=== PATIENT | female | born 1945 | race Caucasian/White ===

== ENCOUNTER 2019-09-29 10:41 | Inpatient (IN) | payer MEDICARE, OTHER ==
[~2019-09-29] VITALS: Ht 152.4 cm; Wt 57.2 kg
[~2019-09-29 10:41] MED LIST: ALLEGRA D PO; Acetaminophen PO; BELLADONNA PO; CHOL200074 PO; CICL12.5 EA NOSTRIL; DIAZ2TAB PO; ESOM40CA PO; EZET10TA15 PO; HYDR-4354 PO; MELO-107 PO; MONT10TA22 PO; MUPIROCIN 2%; NEBI5TAB8 PO; OLME1TAB22 PO; OLOP30.5 EA NOSTRIL; PHENERGAN PO; RANI-655 PO; TOPOMAX PO
--- NOTE | 2019-09-29 10:57 | NUR ---
Pt states her B/P has been running high >160/90's. Pt c/o dizziness, MONSALVE, SOB (denies cough), and n/v. Also c/o leg heaviness. Pt denies CP, minor distress noted.
[2019-09-29] MEDS ORDERED: ACETAMINOPHEN ES 500 MG TABLET PO ONE (11:15)
[2019-09-29] MEDS ORDERED: METOCLOPRAMIDE HCL 10 MG/2 ML VIAL IV ONE (11:15)
[2019-09-29] MEDS ORDERED: IV NORMAL SALINE 1000 ML BAG IV ONE (11:15)
[2019-09-29] MEDS ORDERED: diphenhydrAMINE 50 MG/1 ML VIAL IV ONE (11:15)
[2019-09-29] MEDS ORDERED: MECLIZINE HCL 25 MG TABLET PO ONE (11:15)
[2019-09-29] MEDS ORDERED: RIZA10TA27 PO (11:27)
[2019-09-29] MEDS ORDERED: FURO20TA4 PO (11:27)
[2019-09-29] MEDS ORDERED: AMLO2.5T4 PO (11:27)
[2019-09-29] MEDS ORDERED: SERT100T PO (11:27)
[2019-09-29] MEDS ORDERED: DONE10TA44 PO (11:27)
[2019-09-29] MEDS ORDERED: ROPI1TAB6 PO (11:27)
[2019-09-29] MEDS ORDERED: MV-M1TAB18 PO (11:27)
[2019-09-29] MEDS ORDERED: OLME1TAB19 PO (11:27)
[2019-09-29] MEDS ORDERED: BACL10TA PO (11:27)
[2019-09-29] MEDS ORDERED: KCL PO (11:27)
[2019-09-29] MEDS ORDERED: MEMA10TA PO (11:27)
[2019-09-29] MEDS ORDERED: FAMO40TA7 PO (11:27)
[2019-09-29] MEDS ORDERED: ATOR20TA PO (11:27)
[2019-09-29] MEDS ORDERED: SUCR1TAB PO (11:27)
[2019-09-29] MEDS ORDERED: OMEG-166 PO (11:27)
[2019-09-29 11:41] LABS: BASOPHILS # (AUTO) 0.1 K/uL (0.0-8.0); BASOPHILS % (AUTO) 0.7 % (0.0-2.0); EOSINOPHILS % (AUTO) 0.1 % (0.0-7.0); HEMATOCRIT 37.2 % (31.2-41.9); HEMOGLOBIN 12.4 g/dL (10.9-14.3); LYMPHOCYTES # (AUTO) 0.9 K/uL (20.0-40.0); LYMPHOCYTES % (AUTO) 12.8 % (20.5-51.5); MEAN CORPUSCULAR HEMOGLOBIN 27.5 uug (24.7-32.8); MEAN CORPUSCULAR HGB CONC 33 g/dL (32.3-35.6); MEAN CORPUSCULAR VOLUME 82.4 fL (75.5-95.3); MONOCYTES # (AUTO) 0.3 K/uL (2.0-10.0); MONOCYTES % (AUTO) 4.6 % (0.0-11.0); NEUTROPHILS # (AUTO) 5.9 K/uL (1.8-8.9); NEUTROPHILS % (AUTO) 81.8 % (38.5-71.5); PLATELET COUNT (AUTO) 342 K/uL (179-408); RED BLOOD CELL COUNT(AUTO) 4.51 MIL/uL (3.63-4.92); WHITE BLOOD COUNT (AUTO) 7.3 K/uL (3.8-11.8)
[2019-09-29] MEDS ORDERED: ACETAMINOPHEN ES 500 MG TABLET ONE (11:41)
[2019-09-29] MEDS ORDERED: MECLIZINE HCL 25 MG TABLET ONE (11:41)
[2019-09-29] MEDS ORDERED: METOCLOPRAMIDE HCL 10 MG/2 ML VIAL ONE (11:42)
[2019-09-29] MEDS ORDERED: diphenhydrAMINE 50 MG/1 ML VIAL ONE (11:42)
[2019-09-29 11:54] LABS: CREATININE 1.1 mg/dL (0.6-1.3); POTASSIUM 3.2 mmol/L (3.5-5.1)
[2019-09-29] MEDS ORDERED: MAGN400C PO (12:06)
[2019-09-29] MEDS ORDERED: IBAN150T16 PO (12:06)
[2019-09-29 12:08] LABS: BILIRUBIN,DIRECT 0.1 mg/dL (0.0-0.2); BILIRUBIN,TOTAL 0.5 mg/dL (0.2-1.0); MAGNESIUM 1.8 mg/dL (1.8-2.4); PHOSPHOROUS 4.1 mg/dL (2.5-4.9); TOTAL PROTEIN, SERUM 7.6 g/dL (6.4-8.2)
[2019-09-29] MEDS ORDERED: IOHEXOL 350 100 ML INFUS..BTL ONE (12:10)
[2019-09-29] MEDS ORDERED: SWABABLE VALVE TRANSFER SET EA MC ONE (12:10)
[2019-09-29] MEDS ORDERED: IV NORMAL SALINE 250 ML IV ONE (12:10)
[2019-09-29 12:18] LABS: THYROID STIMULATING HORMONE 0.66 mIU/mL (0.358-3.740)
--- NOTE | 2019-09-29 12:18 | NUR ---
Pt signed consent for CT contrast. Taken to CT.
[2019-09-29] MEDS ORDERED: IV NS 1000 ML 1,000 ML IV ONE (12:30)
[2019-09-29] MEDS ORDERED: POTASSIUM CHLORIDE 20 MEQ TAB.PRT.SR PO ONE (12:30)
--- NOTE | 2019-09-29 12:39 | NUR ---
Pt back from CT. Pt gave urine sample, delivered to lab
[2019-09-29 12:59] LABS: *BILIRUBIN,URIN NEGATIVE (NEGATIVE); *CLARITY,URINE CLEAR (CLEAR); *COLOR,URINE YELLOW (YELLOW); *KETONES,URINE NEGATIVE (NEGATIVE); *UROBILINOGEN,URINE 0.2 E.U./dl (NORMAL); LEUKOCYTE ESTERASE ,URINE NEGATIVE (NEGATIVE); NITRITE, URINE NEGATIVE (NEGATIVE); UGLUCOSE NEGATIVE (NEGATIVE)
[2019-09-29 13:07] LABS: *BLOOD, URINE TRACE (NEGATIVE)
[2019-09-29] MEDS ORDERED: ONDANSETRON 4 MG/2 ML VIAL IV PRN (13:45)
[2019-09-29] MEDS ORDERED: hydrALAZINE HCL 25 MG TABLET PO PRN (13:45)
[2019-09-29] MEDS ORDERED: MORPHINE SULFATE 2 MG/1 ML DISP.SYRIN IV PRN (13:45)
[2019-09-29] MEDS ORDERED: POTASSIUM CHLORIDE 20 MEQ TAB.PRT.SR ONE ×2 (13:56→14:00)
[2019-09-29] MEDS ORDERED: ASPIRIN 325 MG TABLET ONE (13:59)
[2019-09-29] MEDS ORDERED: ASPIRIN 325 MG TABLET PO ONE (14:00)
--- NOTE | 2019-09-29 16:41 | NUR ---
Called report to SHERIE Joel. Room changed from 327 to 323.
--- NOTE | 2019-09-29 17:44 | NUR ---
Transported pt to #[id number].
[2019-09-29 17:45] VITALS: BP 134/75
--- NOTE | 2019-09-29 18:16 | NUR ---
73 YEAR OLD FEMALE RECEIVED FROM ER VIA RNEY TO ROOM 323 FOR SEVER DIZZINESS ,PT IS [id number] ,CALL LIGHT WITH IN REACH MD CALLED FOR ADMISSION ORDERS
[2019-09-29 18:29] LABS: BACTERIA,URINE NONE SEEN /HPF (NONE SEEN); SQUAMOUS EPITHELIAL CELL,UR FEW /HPF (NONE SEEN); WBC,URINE 0-3 /HPF (0-3)
[2019-09-29 18:30] LABS: MUCUS,URINE FEW /LPF (0-FEW)
--- NOTE | 2019-09-29 20:00 | NUR ---
Received patient awake and alert. Patient shows no signs or symptoms of distress at this time. Vital signs stable. NSR/Sinus carol on tele monitor. Denies having any dizziness at this time. Bed set to lowest position. Call light within reach. Side rails X2 are up. Will continue to monitor patient.
[2019-09-29 20:18] VITALS: BP 130/68
[2019-09-29] MEDS: ACETAMINOPHEN 325 MG TABLET PO PRN (20:58)
[2019-09-29] MEDS ORDERED: TEMAZEPAM 15 MG CAPSULE PO PRN (21:00)
[2019-09-30] VITALS: BP 122/76
[2019-09-30 06:14] LABS: BASOPHILS # (AUTO) 0.1 K/uL (0.0-8.0); BASOPHILS % (AUTO) 1.2 % (0.0-2.0); EOSINOPHILS # (AUTO) 0.1 K/uL (0.0-0.7); HEMATOCRIT 39.2 % (31.2-41.9); HEMOGLOBIN 12.8 g/dL (10.9-14.3); LYMPHOCYTES # (AUTO) 2.4 K/uL (20.0-40.0); LYMPHOCYTES % (AUTO) 35.2 % (20.5-51.5); MEAN CORPUSCULAR HEMOGLOBIN 27.3 uug (24.7-32.8); MEAN CORPUSCULAR HGB CONC 33 g/dL (32.3-35.6); MEAN CORPUSCULAR VOLUME 83.7 fL (75.5-95.3); MONOCYTES # (AUTO) 0.6 K/uL (2.0-10.0); MONOCYTES % (AUTO) 9.2 % (0.0-11.0); NEUTROPHILS # (AUTO) 3.6 K/uL (1.8-8.9); NEUTROPHILS % (AUTO) 53.4 % (38.5-71.5); PLATELET COUNT (AUTO) 365 K/uL (179-408); RED BLOOD CELL COUNT(AUTO) 4.68 MIL/uL (3.63-4.92); WHITE BLOOD COUNT (AUTO) 6.8 K/uL (3.8-11.8)
[2019-09-30 06:32] LABS: BILIRUBIN,TOTAL 0.4 mg/dL (0.2-1.0); CREATININE 1.2 mg/dL (0.6-1.3); MAGNESIUM 2.1 mg/dL (1.8-2.4); PHOSPHOROUS 3.3 mg/dL (2.5-4.9); POTASSIUM 3.8 mmol/L (3.5-5.1); TOTAL PROTEIN, SERUM 7.4 g/dL (6.4-8.2)
--- NOTE | 2019-09-30 06:41 | NUR ---
Patient shows no signs or symptoms of distress at this time. Vital signs stable. Sinus Fausto/NSR on tele monitor. 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
[2019-09-30 06:43] VITALS: BP 130/54
[2019-09-30] MEDS ORDERED: PANTOPRAZOLE SODIUM 40 MG TABLET.DR PO SCH (07:00)
[2019-09-30] MEDS ORDERED: ASPIRIN/ACETAMINOPHEN/CAFFEINE TABLET PO PRN (11:45)
[2019-09-30 12:00] VITALS: BP 127/56
[2019-09-30] MEDS ORDERED: ATOR20TA PO (13:59)
[2019-09-30] MEDS: ACETAMINOPHEN 325 MG TABLET PO PRN (15:06)
--- NOTE | 2019-09-30 15:13 | NUR ---
dc orders received noted and carried out,dc instruction and education given to the pt,zack benjamin per md orders,pt said she will follow up with the pcp in one week.pt left the facility via private car in stable condition
[2019-09-30] MEDS ORDERED: ATORVASTATIN 20 MG TABLET PO SCH (21:00)
== END 2019-09-30 15:25 | disposition home or self-care (01) | DRG 149 ==
LOC: ER 10:41 → TELE3 16:38 → MEDSURG3 09-30 11:35
PROVIDERS: ADMIT Internal Medicine; ATTEND Internal Medicine
DX: H83.09 Labyrinthitis, unspecified ear (principal); E87.1 Hypo-osmolality and hyponatremia; J32.8 Other chronic sinusitis; I35.1 Nonrheumatic aortic (valve) insufficiency; I10 Essential (primary) hypertension; G43.909 Migraine, unspecified, not intractable, without status migrainosus; I71.2 Thoracic aortic aneurysm, without rupture; E78.5 Hyperlipidemia, unspecified; R73.03 Prediabetes; M81.0 Age-related osteoporosis without current pathological fracture; M19.90 Unspecified osteoarthritis, unspecified site; J44.9 Chronic obstructive pulmonary disease, unspecified; I73.9 Peripheral vascular disease, unspecified; E87.6 Hypokalemia; I70.8 Atherosclerosis of other arteries; Z85.3 Personal history of malignant neoplasm of breast; Z87.891 Personal history of nicotine dependence; M54.10 Radiculopathy, site unspecified
CPT/HCPCS: 36415; 70030-TC; 70496; 71045; 83550; 83605; 83690; 83735; 84100; 84443; 85025; 87040; 87086; 93005; 93307; A4663; A9150; G0378; J1200; J2765; J7030; J7050; J8597; Q9967